=== PATIENT | male | born 1990 ===

== ENCOUNTER → 2024-12-06 10:19 | Outpatient (CLI) | payer OTHER ==
[2024-12-06 11:08] LABS: URINE APPEARANCE Clear; URINE BILIRRUBIN Negative (NEGATIVE); URINE BLOOD Negative; URINE COLOR Yellow; URINE GLUCOSE Negative (NEGATIVE); URINE KETONE Negative (NEGATIVE); URINE LEUKOCYTE Negative; URINE NITRATE Negative; URINE PROTEIN Negative (NEGATIVE); URINE UROBILINOGEN 0.2 E.U./dl
[2024-12-06 11:09] LABS: URINE BACTERIA 7.1 uL (0.0-1933); URINE EPITHELIAL CELLS 1.9 uL (0.0-38.8); URINE RBC 2.6 uL (0.0-20.8); URINE WBC 2.3 uL (0.0-23.2)
[2024-12-06 11:13] LABS: BASO % 0.6 % (0.1-1.2); EOS # 0.23 (0.04-0.54); EOS % 2.7 % (0.7-7.0); LYMPH # 2.83 (1.18-3.74); LYMPH % 32.7 % (19.3-53.1); MEAN PLATELET VOLUME 9.40 fl (9.4-12.4); MONO # 0.60 (0.24-0.82); MONO % 6.9 % (4.7-12.5); NEUT # 4.88 (1.56-6.13); NEUT % 56.4 % (34.0-71.1); RED CELL DISTRIBUTION WIDTH 13.3 % (11.6-14.4)
[2024-12-06 11:42] LABS: BUN CREA RATIO 15.0 (7.0-25.0); CREATININE SERUM 0.71 mg/dL (0.70-1.30); GFR 125.53; GLUCOSE FASTING 113.0 mg/dL (65-100); OSMOLALITY SERUM 281.0 MOSM/KG (275-295)
[2024-12-06 11:45] LABS: INR 0.99
[2024-12-06 12:23] LABS: URINE CAST 0.00 uL (0.0-1.40)
== END | disposition home or self-care (01) ==
LOC: LAB 10:19
PROVIDERS: ATTEND Colon & Rectal Surgery
DX: K62.89 Other specified diseases of anus and rectum (principal); K62.5 Hemorrhage of anus and rectum; K64.2 Third degree hemorrhoids